=== PATIENT | female | born 1995 | race Caucasian/White ===

== ENCOUNTER 2024-11-27 23:14 | Emergency (ER) | payer OTHER ==
[~2024-11-27] VITALS: Ht 160 cm; Wt 93.0 kg
[2024-11-28] MEDS ORDERED: Ondansetron Hydrochloride 4 MG TAB SL ONE (00:15)
[2024-11-28 00:23] LABS: BILIRUBIN Negative (Negative); BLOOD 3+ (Negative); CLARITY Clear (Clear); COLOR Yellow (Yellow); GLUCOSE Negative (Negative); KETONE Negative (Negative); LEUKO ESTERASE 1+ (Negative); NITRITE Negative (Negative); PH 5.5 (4.5-8.0); SPECIFIC GRAVITY 1.015 (1.001-1.030); UROBILINOGEN 0.2 E.U./dl (0.0-1.0)
[2024-11-28 00:41] LABS: EPITHELIAL CELLS 31-40
[2024-11-28 00:42] LABS: BACTERIA TRACE; RBC 41-50 rbc/hpf (0-2)
== END 2024-11-28 01:12 | disposition home or self-care (01) ==
LOC: ED 23:14
PROVIDERS: Internal Medicine
DX: O26.891 Other specified pregnancy related conditions, first trimester (principal); O21.9 Vomiting of pregnancy, unspecified; N20.9 Urinary calculus, unspecified; Z3A.09 9 weeks gestation of pregnancy

== ENCOUNTER → 2025-10-03 | Outpatient (CLI) | payer OTHER | END | disposition home or self-care (01) | LOC: CT 14:42 | PROVIDERS: ATTEND Nurse Practitioner Family | DX: N20.0 Calculus of kidney (principal); K76.0 Fatty (change of) liver, not elsewhere classified; K42.9 Umbilical hernia without obstruction or gangrene; N85.2 Hypertrophy of uterus ==